=== PATIENT | female | born 1980 | race Hispanic/Latino ===

== ENCOUNTER → 2024-03-30 | Day surgery (SDC) | payer BC, OTHER ==
[2024-03-28 13:49] LABS: ANION GAP 14.2 mmol/L (8-16); CALCIUM 9.6 mg/dL (8.4-10.2); CREATININE, SERUM 0.73 mg/dL (0.57-1.11); POTASSIUM 4.2 mmol/L (3.5-5.1)
[~2024-03-30] MED LIST: ACETAMINOPHEN 1000 MG/100 ML 100 ML IV ONE; CARAFATE1 GM/10 ML PO; DEXAMETHASONE SOD PHOS INJ 4 MG/ML SDV ONE; FAMOTIDINE 20 MG/2 ML VIAL IV ONE; FENTANYL CITRATE/PF 100MCG/2 ML INJ ONE; IBUPROFEN200 MG PO; KETOROLAC TROMETHAMINE 30 MG/ML VIAL ONE; LIDOCAINE HCL 2% LOCAL INJ 5 ML SDV VIAL INJ ONE; MIDAZOLAM HCL 2 MG/2 ML VIAL ONE; MULTI-VITAMIN1 EACH PO; OMEPRAZOLE40 MG PO; ONDANSETRON HCL INJ 2MG/ML 2ML 2 MG/ML VIAL ONE; PROPOFOL IV EMULSION 10 MG/ML 20 ML VIAL ONE; SEVOFLURANE INHAL SOLN 250 ML PEN BTL ONE
[2024-03-30] MEDS: LACTATED RINGER'S 1,000 ML ONE (06:22)
[2024-03-30] MEDS: CEFAZOLIN SODIUM 2 GM ONE (06:22)
[2024-03-30] MEDS: HYDROMORPHONE 1MG/1ML INJ ONE (08:17)
[2024-03-30] MEDS: HYDROCODONE/APAP 5MG-325MG TAB ONE (08:45)
[2024-03-30] MEDS: ONDANSETRON HCL INJ 2MG/ML 2ML 2 MG/ML VIAL ONE (08:50)
[2024-03-30 09:30] VITALS: BP 121/76; PULSE 81; RESP 18; O2SAT 99
== END | disposition home or self-care (01) ==
LOC: OR 05:46
PROVIDERS: ATTEND Podiatrist Foot & Ankle Surgery
DX: G57.51 Tarsal tunnel syndrome, right lower limb (principal); I83.91 Asymptomatic varicose veins of right lower extremity; E66.01 Morbid (severe) obesity due to excess calories; Z79.1 Long term (current) use of non-steroidal anti-inflammatories (NSAID)
CPT/HCPCS: 28035; 36415; 80048; 81025; J0131; J1100; J1171; J1885; J2003; J2250; J2405; J2704; J3010; J7121